=== PATIENT | male | born 1985 | race African-American/Black ===

== ENCOUNTER 2018-07-23 21:03 | Emergency (ER) | payer OTHER ==
[2018-07-24 00:43] LABS: ALANINE AMINOTRANSFERASE 56 IU/L (13-69); ALBUMIN 4.6 g/dl (3.3-4.9); ALBUMIN/GLOBULIN RATIO 1.15; ALKALINE PHOSPHATASE 70 IU/L (42-121); ANION GAP 16 (8-16); ASPARTATE AMINO TRANSFERASE 33 IU/L (15-46); BILIRUBIN,INDIRECT 0.8 mg/dl (0-1.1); BILIRUBIN,TOTAL 0.8 mg/dl (0.2-1.3); BLOOD UREA NITROGEN 15 mg/dl (7-20); CALCIUM 9.6 mg/dl (8.4-10.2); CARBON DIOXIDE 25 mmol/L (21-31); CHLORIDE 104 mmol/L (97-110); CREATININE 1.11 mg/dl (0.61-1.24); GLUCOSE 82 mg/dl (70-220); SODIUM 140 mmol/L (135-144); TOTAL PROTEIN 8.6 g/dl (6.1-8.1)
[2018-07-24] MEDS: IOHEXOL 300MG/ML 150 ML BTL (01:23)
[2018-07-24] MEDS: SOD CHLORIDE 0.9% 100 ML (01:23)
== END 2018-07-24 02:33 | disposition home or self-care (01) ==
LOC: FTE 21:03
DX: K40.91 Unilateral inguinal hernia, without obstruction or gangrene, recurrent (principal)
CPT/HCPCS: 74177; 80053; 99284-25

== ENCOUNTER 2018-11-20 05:56 | Day surgery (SDC) | payer OTHER ==
[2018-11-20] MEDS ORDERED: SOD CHLORIDE 0.9% 1,000 ML IV (06:00)
[2018-11-20] MEDS ORDERED: CEFAZOLIN 2 GM/50 ML (PMX) 50 ML IVPB (06:00)
[2018-11-20] MEDS ORDERED: DEXAMETHASONE 4 MG/ML 5 ML INJ (07:00)
[2018-11-20] MEDS ORDERED: DESFLURANE 15 MIN (07:00)
[2018-11-20 07:10] LABS: ADD MAN DIFF? NO
[2018-11-20 07:12] LABS: BASOPHIL # 0.1 10^3/ul (0.0-0.1); EOSINOPHILS # 0.3 10^3/ul (0.0-0.5); EOSINOPHILS % 4.1 % (0.0-7.0); HEMATOCRIT 46.3 % (42.0-52.0); HEMOGLOBIN 15.8 g/dl (14.0-18.0); LYMPHOCYTES # 2.7 10^3/ul (0.8-2.9); LYMPHOCYTES % 44.1 % (15.0-51.0); MEAN CORPUSCULAR HEMOGLOBIN 30.4 pg (29.0-33.0); MEAN CORPUSCULAR HGB CONC 34.1 g/dl (32.0-37.0); MEAN PLATELET VOLUME 10.8 fl (7.4-10.4); MONOCYTE # 0.4 10^3/ul (0.3-0.9); MONOCYTES % 5.7 % (0.0-11.0); NEUTROPHIL # 2.8 10^3/ul (1.6-7.5); NEUTROPHILS % 44.9 % (39.0-77.0); PLATELET COUNT 197 10^3/UL (140-415); RED CELL DISTRIBUTION WIDTH 12.2 % (11.5-14.5)
[2018-11-20 07:12] LABS: WHITE BLOOD COUNT 6.2 10^3/ul (4.8-10.8)
[2018-11-20 07:22] LABS: ALANINE AMINOTRANSFERASE 41 IU/L (13-69); ALBUMIN 4.4 g/dl (3.3-4.9); ALBUMIN/GLOBULIN RATIO 1.37; ALKALINE PHOSPHATASE 59 IU/L (42-121); ANION GAP 8 (5-13); ASPARTATE AMINO TRANSFERASE 24 IU/L (15-46); BLOOD UREA NITROGEN 13 mg/dl (7-20); CALCIUM 9.6 mg/dl (8.4-10.2); CARBON DIOXIDE 26 mmol/L (21-31); CHLORIDE 105 mmol/L (97-110); CREATININE 0.96 mg/dl (0.61-1.24); Estimated GFR > 60 mL/min (>60); POTASSIUM 4.6 mmol/L (3.5-5.1); SODIUM 139 mmol/L (135-144); TOTAL PROTEIN 7.6 g/dl (6.1-8.1)
[2018-11-20 07:23] LABS: BILIRUBIN,INDIRECT 0.2 mg/dl (0-1.1); BILIRUBIN,TOTAL 0.2 mg/dl (0.2-1.3); GLUCOSE 91 mg/dl (70-220)
[2018-11-20] MEDS ORDERED: hydrALAzine 20 MG INJ IV (07:30)
[2018-11-20] MEDS ORDERED: ONDANSETRON 4 MG INJ IV (07:30)
[2018-11-20] MEDS ORDERED: DIPHENHYDRAMINE 50 MG INJ IV (07:30)
[2018-11-20] MEDS ORDERED: TRIMETHOBENZAMIDE 100 MG/ML VIAL IM (07:30)
[2018-11-20] MEDS ORDERED: EPHEDrine SULFATE 50 MG/5 ML SYG IV (07:30)
[2018-11-20] MEDS ORDERED: MIDAZOLAM 1 MG/ML 2 ML INJ IV (07:30)
[2018-11-20] MEDS ORDERED: IPRATROPIUM (NEB) 0.5 MG/2.5 ML AMP HHN (07:30)
[2018-11-20] MEDS ORDERED: ALBUTEROL 0.083% (NEB) 2.5 MG/3 ML AMP HHN (07:30)
[2018-11-20] MEDS ORDERED: LABETALOL HCL 20MG INJ IV (07:30)
[2018-11-20] MEDS ORDERED: HYDROmorphONE 1 MG/5 ML IV SYRINGE IV ×3 (07:30)
[2018-11-20] MEDS ORDERED: FENTAnyl 50 MCG/ML VIAL IV ×3 (07:30)
[2018-11-20] MEDS ORDERED: MEPERIDINE 25 MG INJ IV (07:30)
[2018-11-20] MEDS ORDERED: OXYCODONE/ACETAMINOPHEN (5/325) TAB PO (07:30)
[2018-11-20] MEDS ORDERED: CEFAZOLIN 1 GM INJ (07:34)
[2018-11-20] MEDS ORDERED: NEOSTIGMINE 3 MG/3 ML SYRINGE (07:34)
[2018-11-20] MEDS ORDERED: GLYCOPYRROLATE 0.4 MG INJ (07:34)
[2018-11-20] MEDS ORDERED: PROPOFOL 20 ML (07:34)
[2018-11-20] MEDS ORDERED: ROCURONIUM 50 MG INJ (07:34)
[2018-11-20] MEDS ORDERED: FENTAnyl 50 MCG/ML VIAL (07:37)
[2018-11-20] MEDS ORDERED: MIDAZOLAM 1 MG/ML 2 ML INJ (07:37)
[2018-11-20] MEDS ORDERED: ROPIVACAINE 0.5 % 30 ML VIAL (07:37)
[2018-11-20] MEDS ORDERED: ONDANSETRON 4 MG INJ (07:37)
[2018-11-20 08:06] LABS: INR 0.87; PROTIME 11.9 Sec (11.9-14.9); PT RATIO 0.9
[2018-11-20 08:07] LABS: PARTIAL THROMBOPLASTIN TIME 27.6 Sec (23.0-35.0)
[2018-11-20] MEDS: BUPIVACAINE 0.25% (MPF) 30 ML INJ (08:29)
[2018-11-20] MEDS ORDERED: HYDROCODONE/APAP (5/325) TAB PO (09:00)
[2018-11-20] MEDS: POLYMYXIN/BACITRACIN 1L IRRIG (10:03)
[2018-11-20] MEDS: OXYCODONE/ACETAMINOPHEN (5/325) TAB PO (11:01)
== END 2018-11-20 11:15 | disposition home or self-care (01) ==
LOC: SDS 05:56
DX: K40.30 Unilateral inguinal hernia, with obstruction, without gangrene, not specified as recurrent (principal); N43.3 Hydrocele, unspecified
CPT/HCPCS: 49507; 80053; 85025; 85610; 85730; 88302